=== PATIENT | male | born 1985 | race Caucasian/White ===

== ENCOUNTER → 2021-05-11 15:56 | Outpatient (CLI) | payer BC, SELFPAY ==
--- NOTE | 2021-05-11 16:04 | XR_ITS ---
PROCEDURE: XR HAND RT MIN 3V CLINICAL INDICATION: OTHER CHRONIC PAIN COMPARISON: No exams were available for comparison FINDINGS: There is a dorsal bone plate at the 4th and 5th metacarpals with good alignment. No acute fracture or dislocation. No lytic or blastic change. The small well-circumscribed calcific density is present lateral to the waist of the scaphoid measuring 2 mm. The joint spaces are well-preserved. No significant degenerative/arthritic changes. No erosive changes evident. Other findings:None. IMPRESSION: Prior ORIF 4th and 5th metacarpals otherwise negative Dictated by: Km Heck MD 05/11/2021 16:52 Km Heck MD in [place] 05/11/2021 16:52
--- NOTE | 2021-05-11 16:05 | XR_ITS ---
PROCEDURE: XR KNEE LT 3V CLINICAL INDICATION: OTHER CHRONIC PAIN COMPARISON: No exams were available for comparison FINDINGS: Lateral bone plate is present at the distal femur with multiple cortical screws. There are no previous exams available for comparison. Most proximal aspect of the bone plate is not imaged. No evidence prosthesis fracture or screw fracture. Old fracture is present involving the distal femur with good alignment. The knee has an unremarkable appearance. IMPRESSION: Negative left knee. Prior ORIF old distal femur fracture Dictated by: Km Heck MD 05/11/2021 16:51 Km Heck MD in [place] 05/11/2021 16:51
== END ==
PROVIDERS: PCP Internal Medicine Adolescent Medicine; Visit Provider Internal Medicine Adolescent Medicine
DX: G89.29 Other chronic pain (principal)
CPT/HCPCS: 73130; 73562